=== PATIENT | female | born 1965 | race Caucasian/White ===

== ENCOUNTER 2020-05-14 07:30 | Outpatient (CLI) | payer OTHER, SELFPAY ==
--- NOTE | ~2020-05-14 | MM_ITS ---
EXAMINATION: MM screening ever BI w guanakito HISTORY: Screening mammogram TECHNIQUE: Craniocaudal and mediolateral oblique 3-D tomosynthesis images were obtained and synthetic 2-D images were generated. CAD analysis was submitted and interpreted. COMPARISON: 05/05/2019, 04/28/2018, 04/07/2017 bilateral digital screening mammogram examinations BREAST PARENCHYMAL COMPOSITION: The breasts are extremely dense, which lowers the sensitivity of mamm ography. FINDINGS: There is no evidence of suspicious mass, calcification, or architectural distortion to sugg est malignancy in either breast. There has been no suspicious interval change. IMPRESSION: 1. No mammographic evidence of malignancy. 2. Recommend routine screening mammography in one year. 3. Ultrasound may be of supplemental screening value in patients with dense breasts depending upon ph ysical examination and physician and patient preference. BI-RADS Category 1: Negative Reviewed, dictated and finalized at location A. IMPRESSION: 1. No mammographic evidence of malignancy. 2. Recommend routine screening mammography in one year. 3. Ultrasound may be of supplemental screening value in patients with dense anna asts depending upon physical examination and physician and patient preference. BI-RADS Category 1: Negative
== END 2020-05-14 07:31 | disposition home or self-care (01) ==
LOC: ANHIMG 07:31
PROVIDERS: PCP Family Medicine; Visit Provider Obstetrics & Gynecology
DX: Z12.31 Encounter for screening mammogram for malignant neoplasm of breast (principal)
CPT/HCPCS: 77063; 77067

== ENCOUNTER 2021-05-14 07:41 | Outpatient (CLI) | payer OTHER, SELFPAY ==
--- NOTE | ~2021-05-14 | MM_ITS ---
EXAMINATION: MM screening ever BI w guanakito HISTORY: Screening mammogram TECHNIQUE: Craniocaudal and mediolateral oblique 3-D tomosynthesis images were obtained and synthetic 2-D images were generated. CAD analysis was submitted and interpreted. COMPARISON: 05/14/2020, 05/05/2019, 04/28/2018 bilateral digital screening mammogram examinations BREAST PARENCHYMAL COMPOSITION: The breasts are extremely dense, which lowers the sensitivity of mamm ography. FINDINGS: There is no evidence of suspicious mass, calcification, or architectural distortion to sugg est malignancy in either breast. There has been no suspicious interval change. IMPRESSION: 1. No mammographic evidence of malignancy. 2. Recommend routine screening mammography in one year. BI-RADS Category 1: Negative Reviewed, dictated and finalized at location A.
== END 2021-05-14 07:42 | disposition home or self-care (01) ==
LOC: ANHIMG 07:43
PROVIDERS: PCP Internal Medicine; Visit Provider Obstetrics & Gynecology
DX: Z12.31 Encounter for screening mammogram for malignant neoplasm of breast (principal)
CPT/HCPCS: 77063; 77067

== ENCOUNTER 2022-01-10 00:19 | Day surgery (SDC) | payer OTHER, SELFPAY ==
[2021-12-30 16:01] VITALS: BMI 21.2
--- NOTE | 2022-01-09 12:29 | P.CONGI_ITS ---
Assessment and Plan Assessment and plan (1) Colon cancer screening: Code(s): Z12.11 - Encounter for screening for malignant neoplasm of colon Status: Acute Assessment and Plan: Colonoscopy with possible biopsy or polypectomy or cautery or injection of substances. (2) Hx of colonic polyps: Code(s): Z86.010 - Personal history of colonic polyps Status: Acute GI Consult Note Consult date/time: 01/09/22 12:29 HPI: Giovana Andre is a 56 year old female Who was referred because of the need for colon cancer screening. She did have 2 small polyps removed about 6 years ago. There is a family history of breast cancer but not colon cancer Review of Systems Review of Systems: All systems reviewed & are unremarkable except as noted in HPI and below PMFSH Past Medical History Medical History BMI 21.0-21.9, adult BMI 22.0-22.9, adult Encounter for long-term current use of medication Encounter for preventive health examination Encounter to establish care History of vaginal delivery x 3 Hx of colonic polyps Right foot pain Stress Vitamin D deficiency Surgical History Surgical History S/P medial meniscus repair of left knee 2018 [place] teeth removed Family History Family History Mother Family history of heart disease in male family member before age 55 Patient's mother is in good health, Onset Age: 70 Family history of malignant neoplasm of breast in first degree relative Grandparent Cerebrovascular accident Family history of malignant neoplasm of breast Social History Social History Smoking status: Never smoker Alcohol intake: current Drinks per week: 1 Alcohol use details: WINE/GLASS Substance use: never Substance use type: does not use Living arrangements: with family Spiritual care concerns: No Meds Home Medications and Allergies Home Medications Medication Instructions Recorded Confirmed Type cholecalciferol (vitamin D3) 25 25 mcg PO DAILY 04/09/20 01/10/22 History mcg (1,000 unit) capsule cyanocobalamin (vitamin B-12) 1,000 mcg PO DAILY 12/30/21 01/10/22 History [Vitamin B-12] Allergies Allergy/AdvReac Type Severity Reaction Status Date / Time No Known Allergies Allergy Verified 01/10/22 08:07 Exam Resp: Auscultation: clear to auscultation bilaterally Cardio: Rate: regular rate Rhythm: regular rhythm GI: GI Palp: Yes Soft to palpation and No Tenderness to palpation present (GI)
[2022-01-10 08:09] VITALS: BP 122/75; PULSE 59; RESP 16; TEMP 36.6; O2SAT 99; BMI 21.0
[2022-01-10] MEDS: LACTATED RINGERS 1,000 ML 150 ML IV CONT (08:11)
--- NOTE | 2022-01-10 08:35 | P.PNAN_ITS ---
Anes - Initial Pre Proc Eval Procedure: Operation Date: 01/10/22 09:00 Proposed Procedures p Screening Colonoscopy - Brenton Ness MD Date/Time: 01/10/22 08:35 Surgeon: Brenton Ness MD Pre Op Diagnosis: neoplasm screening, hx of colon polyps Patient Data Age: 56 Gender: F Height: 1.68 m Weight: 59.2 kg Last Vital Signs Temp 36.6 C 01/10/22 08:09 Pulse 59 L 01/10/22 08:09 Resp 16 01/10/22 08:09 BP 122/75 01/10/22 08:09 Pulse Ox 99 01/10/22 08:09 Allergies Allergy/AdvReac Type Severity Reaction Status Date / Time No Known Allergies Allergy Verified 01/10/22 08:07 Home Medications Medication Instructions Recorded Confirmed Type cholecalciferol (vitamin D3) 25 25 mcg PO DAILY 04/09/20 01/10/22 History mcg (1,000 unit) capsule cyanocobalamin (vitamin B-12) 1,000 mcg PO DAILY 12/30/21 01/10/22 History [Vitamin B-12] Patient hx anesthesia problems: none Family hx anesthesia problems: none Results Review: All pre-operative results and documents have been reviewed as part of the pre-operative evaluation. [facility] Past Medical History Medical History BMI 21.0-21.9, adult BMI 22.0-22.9, adult Encounter for long-term current use of medication Encounter for preventive health examination Encounter to establish care History of vaginal delivery x 3 Hx of colonic polyps Right foot pain Stress Vitamin D deficiency Surgical History Surgical History S/P medial meniscus repair of left knee 2018 [place] teeth removed Family History Family History Mother Family history of heart disease in male family member before age 55 Patient's mother is in good health, Onset Age: 70 Family history of malignant neoplasm of breast in first degree relative Grandparent Cerebrovascular accident Family history of malignant neoplasm of breast Social History Social History Smoking status: Never smoker Alcohol intake: current Drinks per week: 1 Alcohol use details: WINE/GLASS Substance use: never Substance use type: does not use Living arrangements: with family Spiritual care concerns: No Anes - Eval Final PreProcedure Day of Procedure 01/10/22 08:35 Patient weight: normal Heart: regular rate and rhythm Lungs: clear to auscultation Airway: Mallampati scale class II Neurological: alert and oriented Last oral intake: >/= 8 hours ASA classification: I Emergent: no Anesthetic plan: proceed Anesthesia type and monitoring: general GIVS and standard monitoring Results Review: All pre-operative results and documents have been reviewed as part of the pre-operative evaluation. Informed Consent: The patient's anesthetic plan and its attendant risks and benefits were discussed with the patient/family/POA. Questions were solicited and answers provided to the satisfaction of the patient/family/POA.
[2022-01-10 09:12] VITALS: BP 76/36; PULSE 52; RESP 16; O2SAT 100
[2022-01-10 09:22] VITALS: BP 95/54; PULSE 54; RESP 18; O2SAT 100
[2022-01-10 09:32] VITALS: BP 100/59; PULSE 50; RESP 18; O2SAT 100
== END 2022-01-10 09:35 | disposition home or self-care (01) ==
PROVIDERS: PCP Internal Medicine; Visit Provider Internal Medicine Gastroenterology
PROC: 0DJD8ZZ Inspection of Lower Intestinal Tract, Via Natural or Artificial Opening Endoscopic (ICD-10-PCS; CPT 45378; principal; 2022-01-10 09:00)
DX: Z12.11 Encounter for screening for malignant neoplasm of colon (principal); Z86.010 Personal history of colon polyps; E55.9 Vitamin D deficiency, unspecified
CPT/HCPCS: 45378; J2704; J7120

== ENCOUNTER 2022-06-16 07:05 | Outpatient (CLI) | payer OTHER, SELFPAY ==
--- NOTE | ~2022-06-16 | MM_ITS ---
EXAMINATION: MM screening [facility] BI w guanakito HISTORY: Screening mammogram TECHNIQUE: Craniocaudal and mediolateral oblique 3-D tomosynthesis images were obtained and synthetic 2-D images were generated. CAD analysis was submitted and interpreted. COMPARISON: 05/14/2021, 05/14/2020, 05/05/2019 BREAST PARENCHYMAL COMPOSITION: The breasts are heterogeneously dense, which may obscure small masses . FINDINGS: There is no suspicious mass, calcification, or architectural distortion to suggest malignan cy in either breast. There has been no suspicious interval change. IMPRESSION: 1. No mammographic evidence of malignancy. 2. Recommend routine screening mammography in one year. BI-RADS Category 1: Negative Reviewed, dictated and finalized at location A.
== END 2022-06-16 07:06 | disposition home or self-care (01) ==
LOC: ANHIMG 07:07
PROVIDERS: PCP Internal Medicine; Visit Provider Obstetrics & Gynecology
DX: Z12.31 Encounter for screening mammogram for malignant neoplasm of breast (principal)
CPT/HCPCS: 77063; 77067

== ENCOUNTER 2023-01-07 08:57 | Outpatient (CLI) | payer OTHER, SELFPAY ==
--- NOTE | ~2023-01-07 | XR_ITS ---
XR chest 2V DATE: 01/07/2023 09:22 INDICATION: Posterior chest pain TECHNIQUE: PA and lateral views COMPARISON: None FINDINGS: Normal heart size. No hilar or mediastinal enlargement. Mild bilateral hyperinflation. No pulmonary infiltrate or consolidation, pleural effusion or pulmonar y vascular congestion or pneumothorax is detected. IMPRESSION: Mild bilateral hyperinflation Reviewed, dictated and finalized at location B.
--- NOTE | ~2023-01-07 | XR_ITS ---
XR thoracic spine 3V DATE: 01/07/2023 09:22 INDICATION: Back pain, left scapular pain TECHNIQUE: AP, lateral, swimmer views COMPARISON: None FINDINGS: Minimal dextroscoliosis. No fracture or dislocation or bone destruction. The thoracic pedic les are intact. No paraspinal soft tissue thickening. There is minimal degenerative spurring of the thoracic spine. IMPRESSION: Minimal degenerative change Minimal dextro scoliosis Reviewed, dictated and finalized at location B.
== END 2023-01-07 08:58 | disposition home or self-care (01) ==
PROVIDERS: PCP Internal Medicine; Visit Provider Internal Medicine
DX: M54.9 Dorsalgia, unspecified (principal); R07.81 Pleurodynia; R91.8 Other nonspecific abnormal finding of lung field
CPT/HCPCS: 71046; 72072

== ENCOUNTER 2023-09-03 07:26 | Outpatient (CLI) | payer BC, SELFPAY ==
--- NOTE | ~2023-09-03 | MM_ITS ---
EXAMINATION: MM screening ever BI w guanakito HISTORY: Screening mammogram, family history of breast cancer in her mother. TECHNIQUE: Craniocaudal and mediolateral oblique 3-D tomosynthesis images were obtained and synthetic 2-D images were generated. CAD analysis was submitted and interpreted. COMPARISON: 06/16/2022, 05/14/2021, 06/14/2020 BREAST PARENCHYMAL COMPOSITION: The breasts are heterogeneously dense, which may obscure small masses . FINDINGS: No suspicious mass, calcification, or architectural distortion are identified in either anna ast to suggest malignancy. There has been no suspicious interval change. IMPRESSION: 1. No mammographic evidence of malignancy. 2. Recommend routine screening mammography in one year. BI-RADS Category 1: Negative Reviewed, dictated and finalized at location A. CTIVE SUPERVISOR
== END 2023-09-03 07:27 | disposition home or self-care (01) ==
PROVIDERS: PCP Internal Medicine; Visit Provider Obstetrics & Gynecology
DX: Z12.31 Encounter for screening mammogram for malignant neoplasm of breast (principal)
CPT/HCPCS: 77063; 77067

== ENCOUNTER 2024-06-22 10:26 | Outpatient (CLI) | payer BC, SELFPAY ==
[2024-06-22 10:58] LABS: Add Urine Microscopic? YES; Appearance Urine Clear (Clear); Bacteria Urine None Seen /hpf; Bilirubin Urine Negative (Negative); Blood Urine Negative (Negative); Color Urine Yellow (Yellow); Glucose Urine UA Negative (Negative); Ketones Urine Negative (Negative); Leukocyte Esterase Ur 2+ LEU/UL (Negative); Nitrate Urine Negative (Negative); Non Pathogenic Casts 0-2; Protein Urine Negative (Negative); RBC Urine 0-2 /hpf (0-2); Specific Grav Ur 1.004 (1.001-1.035); Squamous Epithelial Cell Urine None Seen /hpf (Few); Urobilinogen Urine 0.2 mg/dL (<2.0); pH Urine 7.5 (5.0-9.0)
== END 2024-06-22 10:27 | disposition home or self-care (01) ==
LOC: ANHLAB 10:29
PROVIDERS: PCP Internal Medicine; Visit Provider Internal Medicine
DX: R35.0 Frequency of micturition (principal)
CPT/HCPCS: 81001; 87077; 87086; 87088; 87186

== ENCOUNTER 2024-09-14 06:58 | Outpatient (CLI) | payer BC, SELFPAY ==
--- NOTE | ~2024-09-14 | XR_ITS ---
XR foot RT 2V Ordering provider: Rao Garcia MD History: . trauma x twisted ankle pain lateral . Comparison: None. FINDINGS: BONES: Fracture in the base of the fifth metatarsal bone. Minimal displacement in the bones is noted. Calcaneal spur. JOINT SPACES: Normal. No tarsal coalition. SOFT TISSUES: Normal. IMPRESSION: Fracture at the base of the fifth metatarsal bone. Reviewed, dictated and finalized at location A. EN MAKING TECHNICIAN
--- NOTE | ~2024-09-14 | XR_ITS ---
XR ankle RT 2V Ordering provider: Rao Garcia MD History: . trauma, twisted ankle pain lateral, bruising on . Comparison: None. FINDINGS: BONES: No acute fracture or dislocation. Calcaneal spur. Calcaneus spur JOINT SPACES: Normal. SOFT TISSUES: Normal. IMPRESSION: No acute osseous abnormality of the right ankle. Reviewed, dictated and finalized at location A. TRONIC SECURITY TECHNICIAN
== END 2024-09-14 06:59 | disposition home or self-care (01) ==
PROVIDERS: PCP Internal Medicine; Visit Provider Internal Medicine
DX: S92.354A Nondisplaced fracture of fifth metatarsal bone, right foot, initial encounter for closed fracture (principal); X50.1XXA Overexertion from prolonged static or awkward postures, initial encounter
CPT/HCPCS: 73600; 73620

== ENCOUNTER 2024-10-31 07:41 | Outpatient (CLI) | payer BC, SELFPAY ==
--- NOTE | ~2024-10-31 | MM_ITS ---
EXAMINATION: MM screening ever BI w guanakito HISTORY: Screening mammogram, family history of breast cancer in her mother. TECHNIQUE: Craniocaudal and mediolateral oblique 3-D tomosynthesis images were obtained and synthetic 2-D images were generated. CAD analysis was submitted and interpreted. COMPARISON: 09/03/2023, 06/16/2022, 05/14/2021 BREAST PARENCHYMAL COMPOSITION:Dense: The breasts are heterogeneously dense, which may obscure small masses. FINDINGS: No suspicious mass, calcification, or architectural distortion are identified in either anna ast to suggest malignancy. There has been no suspicious interval change. IMPRESSION: No mammographic evidence of malignancy. Recommend routine screening mammography in one year. BI-RADS Category 1: Negative Reviewed, dictated and finalized at location . S COUNTERPERSON
== END 2024-10-31 07:42 | disposition home or self-care (01) ==
LOC: ANHIMG 07:44
PROVIDERS: PCP Internal Medicine; Visit Provider Obstetrics & Gynecology
DX: Z12.31 Encounter for screening mammogram for malignant neoplasm of breast (principal)
CPT/HCPCS: 77063; 77067

== ENCOUNTER 2024-12-23 12:46 | Outpatient (CLI) | payer BC, SELFPAY ==
--- NOTE | ~2024-12-23 | DEXA_ITS ---
Bone Density Report Name: GERDA PERSAUD Age: 59 Sex: Female Ethnicity: White Date of : 1965 Indication: postmenopausal; screening for osteoporosis; Referring Provider: LUIS MIGUEL GALINDO Study: Bone densitometry was performed. Exam Date: December 23, 2024 Accession number: [id number] Bone Density: Region BMD T-score Z-score Classification AP Spine(L1-L4) 1.021 -0.2 1.3 Normal Femoral Neck (Left) 0.737 -1.0 0.3 Normal Total Hip (Left) 0.922 -0.2 0.9 Normal Femoral Neck (Right) 0.878 0.3 1.6 Normal Total Hip (Right) 0.939 0.0 1.0 Normal Total Hip Mean 0.930 -0.1 1.0 Normal World Health Organization criteria for BMD impression classify patients as: Normal (T-score at or above -1.0), Osteopenia (T-score between -1.0 and -2.5), or Osteoporosis (T-score at or below -2.5). 10-year Fracture Risk: FRAX not reported because: All T-scores for Spine Total, Hip Total, Femoral Neck at or above -1.0 Clinical Information Provided by Patient: Has used the following medications: Vitamin D, Calcium Patient maximum height was 66 Menopause Age: 54 Drinks caffeinated beverages Onset of menses at age 12 Number of children 3 Impression: The patient has normal bone mass. Discussion: BONE DENSITY IS ABOVE THE MINIMUM DESIRABLE LEVEL AT ALL SKELETAL SITES TESTED. This patient?s bone mineral density is above the minimum desirable level (T-score -1.0 or better) at all sites measured. The patient should follow a healthful lifestyle (good nutrition with adequate calcium and vitamin D, and appropriate weight-bearing exercise). Follow-Up: Consider repeating this study in 5 years or sooner if there is some new clinical indication. Reported by: LUIS on 12/23/2024 1:18:00 PM. Reviewed, dictated and finalized at location [facility] RODRIGUEZ
--- OUTSIDE RECORDS SUMMARY | 2024-12-23 13:07 | XMS_ITS | Clinical Summary ---
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 Gender Identity Not on file Sexual Orientation Not on file Plan of Treatment Health Maintenance Due Date Last Done Comments Hepatitis C Virus (HCV) Screening 1965 Mammogram 1963 TdaP Immunization 1963 Pap Smear 1984 Cervical Cancer Screening (CCS) 1993 HPV/Cotest 1993 Colonoscopy 2008 Colorectal Cancer Screening 2008 Cologuard 2013 Immunochemical Fecal Occult Blood 2013 Pneumococcal Immunization (5 0+ years) (1 of 1 - PCV) 2013 Zoster Immunization (1 of 2) 2013 Influenza Immunization (#1) 2024 SARS-COV-2 Immunization ( - 2023- season) 2024 09/27/2021, 11/30/2020, 11/01/2020 Respiratory Syncytial Virus (RSV) Immunization (Adult) (1 - 1-dose 75+ series) 2038 Hepatitis B Immunization Aged Out No longer eligible based on patient's age to complete this topic Meningococcal Immunization (ACWY) Aged Out No longer eligible b ased on patient's age to complete this topic Pneumococcal Immunization Combined Aged Out No longer eligible b ased on patient's age to complete this topic Rotavirus Immunization Aged Out No lo nger eligible based on patient's age to complete this topic
--- OUTSIDE RECORDS SUMMARY | 2024-12-23 13:07 | XMS_ITS | Clinical Summary ---
Author Organization [facility] [place] [facility] Address [address] [place] [address] Care Team Providers Care Seo Strategist Name Role Phone Art Gay MD Primary Care Provider [phone] Allergies No known active allergies Medications cyanocobalamin (Vitamin B-12) 250 mcg tablet Take 250 mcg by mouth daily. Active Active Problems Problem Noted Date Diagnosed Date Tear of medial meniscus of left knee, current Overview (06/28/2018): Added automatically from request for surgery [id number] Lentigo 09/15/2017 Palpitations 08/07/2015 Sinus bradycardia 08/07/2015 Eczema 03/23/2013 Keratosis, senilis 03/23/2013 Surgical History Surgery Date Site/Laterality Comments COLONOSCOPY KNEE ARTHROSCOPY Family History Medical History Relation Name Comments Coronary artery disease Father Fami ly history of coronary artery disease - (Added by TW Conv) Hypertension Father Family history of hypertension - (Added by TW Conv) Heart attack Mother Family history of heart attack - (Added by TW Conv) Cancer Neg Hx Relation Name Status Comments Father Mother Social History Tobacco Use Types Packs/Day Years Used Date Smoking Tobacco: Never Smokeless Tobacco: Never Alcohol Use Standard Drinks/Week Comments Yes 0 (1 standard drink = 0.6 oz pur e alcohol) social Comments Unknown Sex and Gender Information Value Date Recorded Sex Assigned at Not on file Legal Sex Female 3:49 AM BRAND LEADER Gender Identity Not on file Sexual Orientation Not on file Obstetrics History Last Filed Vital Signs Vital Sign Reading Time Taken Comments Blood Pressure 121/85 09/07/2018 2:32 PM BRAND LEADER Pulse 58 09/07/2018 2:32 PM BRAND LEADER Temperature 36.6 C (97.8 F) 07/21/2018 1:41 PM CDT Respiratory Rate 18 07/21/2018 1:41 PM CDT Oxygen Saturation 100% 07/21/2018 1:41 PM CDT Inhaled Oxygen Concentration - - Weight 60.3 kg (133 lb) 09/07/2018 2:32 PM BRAND LEADER Height 167.6 cm (5' 6 ) 09/07/2018 2:32 PM BRAND LEADER Body Mass Index 21.47 09/07/2018 2:32 PM BRAND LEADER Plan of Treatment Not on file Insurance OPEN ACCESS CHOICE PLUS Care Teams Seo Strategist Relationship Specialty Start Date End Date Art Gay MD [address] [place] [address] PCP - General 07/21/17
--- OUTSIDE RECORDS SUMMARY | 2024-12-23 13:07 | XMS_ITS | Referral Summary ---
Author Organization [facility] [place] [facility] Address [address] [place] [address] Care Team Providers Care Steel Post Installer Name Role Phone Art Gay MD Primary Care Provider [phone] Allergies No known active allergies Medications cyanocobalamin (Vitamin B-12) 250 mcg tablet Take 250 mcg by mouth daily. Active Active Problems Problem Noted Date Diagnosed Date Tear of medial meniscus of left knee, current Overview (06/28/2018): Added automatically from request for surgery [id number] Lentigo 09/15/2017 Palpitations 08/07/2015 Sinus bradycardia 08/07/2015 Eczema 03/23/2013 Keratosis, senilis 03/23/2013 Social History Tobacco Use Types Packs/Day Years Used Date Smoking Tobacco: Never Smokeless Tobacco: Never Alcohol Use Standard Drinks/Week Comments Yes 0 (1 standard drink = 0.6 oz pur e alcohol) social Comments Unknown Sex and Gender Information Value Date Recorded Sex Assigned at Not on file Legal Sex Female 3:49 AM INDUSTRIAL GARAGE SERVICER Gender Identity Not on file Sexual Orientation Not on file Last Filed Vital Signs Vital Sign Reading Time Taken Comments Blood Pressure 121/85 09/07/2018 2:32 PM INDUSTRIAL GARAGE SERVICER Pulse 58 09/07/2018 2:32 PM INDUSTRIAL GARAGE SERVICER Temperature 36.6 C (97.8 F) 07/21/2018 1:41 PM CDT Respiratory Rate 18 07/21/2018 1:41 PM CDT Oxygen Saturation 100% 07/21/2018 1:41 PM CDT Inhaled Oxygen Concentration - - Weight 60.3 kg (133 lb) 09/07/2018 2:32 PM INDUSTRIAL GARAGE SERVICER Height 167.6 cm (5' 6 ) 09/07/2018 2:32 PM INDUSTRIAL GARAGE SERVICER Body Mass Index 21.47 09/07/2018 2:32 PM INDUSTRIAL GARAGE SERVICER Plan of Treatment Not on file Insurance [facility] [address] CHOICE PLUS [facility] H[facility]/PPO Address: [address] [address] [place] [address] Care Teams Steel Post Installer Relationship Specialty Start Date End Date Art Gay MD [address] [place] [address] PCP - General 07/21/17
--- OUTSIDE RECORDS SUMMARY | 2024-12-23 13:07 | XMS_ITS | Clinical Summary ---
Author Organization [facility] Address [address] [place] [address] Care Team Providers Care Appian Bpm Developer Name Role Phone Rubin Servin MD Primary Care Provider [phone] Source Comments [facility],non-owned Affiliates and Associated Physician Practices is amultiple site organization consisting of ambulatory clinics and hospital sitesin [place], [place], [place] and [place]. This disclosure is being madepursuant to the Care Everywhere program and may not contain all information available regarding this patient. Last updated 18.[facility] Allergies No known active allergies Immunizations Name Administration Dates Next Due HEP A VACCINE, ADULT 02/20/2017 Social History Tobacco Use Types Packs/Day Years Used Date Smoking Tobacco: Never Assessed Sex and Gender Information Value Date Recorded Sex Assigned at Not on file Gender Identity Not on file Sexual Orientation Not on file Plan of Treatment Health Maintenance Due Date Last Done Comments COLOGUARD (AGES 45-75) - COL ON CA SCREENING 1963 COLON MONITORING 1963 COLONOSCOPY - COLON CA SCREENING 1963 CT COLONOGRAPHY - COLON CA SCREENING 1963 Colorectal Cancer Screening 1963 FIT - COLON CA SCREENING 1963 FLEX SIG - COLON CA SCREENING 1963 LIPID TESTING 1963 MAMMOGRAM 1963 PAP SMEAR 1963 HIV SCREENING 1978 HEPATITIS C SCREENING 06/13/1981 DTAP/TDAP/TD VACCINES (1 - Tdap) 1982 PNEUMOCOCCAL VACCINE 50+ (1 of 1 - PCV) 2013 ZOSTER VACCINE (1 of 2) 2013 HEPATITIS A VACCINE (2 of 2 - Risk 2-dose series) 08/23/2017 02/20/2017 COVID-19 VACCINE ( - 2023-2 5 season) 2024 INFLUENZA VACCINE (#1) 2024 DEPRESSION SCREENING 10/19/2024 Respiratory Syncytial Virus (RSV) Vaccine Pt: or over 60 yrs (1 - 1-dose 75+ series) 2038 HEPATITIS B VACCINE Aged Out No longe r eligible based on patient's age to complete this topic HIB VACCINE Aged Out No longer eligi ble based on patient's age to complete this topic HPV VACCINE Aged Out No longer eligi ble based on patient's age to complete this topic MENINGOCOCCAL (Group B) VACCINE Aged Out No longer eligible based on patient's age to complete this topic MENINGOCOCCAL VACCINE Aged Out No simona susana eligible based on patient's age to complete this topic PNEUMOCOCCAL VACCINE Aged Out No long er eligible based on patient's age to complete this topic Care Teams Appian Bpm Developer Relationship Specialty Start Date End Date Rubin Servin MD [address] [place] [address] PCP - General Family Medicine 02/20/17
--- OUTSIDE RECORDS SUMMARY | 2024-12-23 13:07 | XMS_ITS | Data Portability ---
Author Organization [facility], Main Office Address [address] [place] [address] Care Team Providers Care Signal Person Name Role Phone SUJIT SCHULTZ Primary Care Provider SUJIT SCHULTZ Referring Provider [phone] Assessment Encounter Date Assessment Date Assessment LastModified by Organization Details LastModified Time 09/21/2024 09/21/2024 59-year-old female presents for evaluation of her right foot. She has referral from Bolivar John from [facility]. She is very active and regularly does triathlons. She was doing a 5 mi run on 09/08/2024 when she stepped on a branch and twisted her ankle, inverting it. She felt a pop and had significant pain. Since then she has been in a boot and weight-bearing on it. She is not taking any pain medications. She currently rates her pain as 3/10. She has a hiking trip at the end of September to [place]. She is a retired nurse at [employer]. Review of systems per patient questionnaire Physical exam: Boot was removed. She has tenderness over the base of the 5th metatarsal. No tenderness elsewhere. She has good ankle range of motion without pain. She has no pain with weight-bearing. Sensation intact to light touch throughout, 2+ DP pulse. X-rays reviewed, demonstrating a minimally displaced pseudo Deal fracture For her pseudo Deal fracture we will treat this conservatively. She may be weight-bearing as tolerated in a boot. We discussed that bones usually take 4-6 weeks to heal. She should take anti-inflammator ies as needed and continue to ice and elevate for swelling. She is already taking vitamin-D and calcium. We will send her to physical therapy to work on ultrasound or stim modalities to try to help expedite her healing. We can see her back before she leaves on her trip for evaluation. If she has minimal pain in his walking better at that point, we can transition her to a lace-up ankle brace and have her wear a high top supportive boot on her hiking trip. Otherwise we will maintain the boot. She is in agreement with the plan. Not available 09/21/2024 16:22:45 10/03/2024 10/03/2024 59-year-old female presents for follow-up of her right pseudo Deal fracture. This happened about 3 weeks ago. She has been weight-bearing as tolerated in the boot. She has made some progress, still having some soreness. She still has tenderness over the base of 5th metatarsal. She has good ankle motion including eversion without pain. Sensation intact to light touch, 2+ DP pulse X-rays reviewed, demonstrating the pseudo Deal fracture with maintenance of alignment We will continue with weight-bearing as tolerated in the boot. She is going to trip and was hoping to come out of the boot for that, but it would be safest to remain in the boot. She should continue doing physical therapy with modalities. We can see her back after the trip to see how she is doing in a few weeks. She is in agreement with the plan. Not available 10/03/2024 11:32:04 10/26/2024 10/26/2024 59-year-old female presents for follow-up her right pseudo Deal fracture. She reports feeling better, having no pain. She has weaned herself out of the boot and is wearing regular sneakers. She recently returned from a trip and did fine with that. She is 8 or greater taking return to activities. She is wearing regular shoes. Nonantalgic gait. She has no tenderness over the base of the 5th metatarsal. Full ankle range of motion. No pain with resisted motion including eversion. X-rays reviewed, demonstrating maintenance of alignment, gap still visible but appears to be starting to fill in At this point, she has no pain and is doing well. She may progress with activities as tolerated. I advised her to avoid activities where she may re-injure the ankle. Activities such as biking or swimming would be safer than running where she could potentially twist her ankle. She may follow-up as needed, call with any questions concerns. Not available 10/26/2024 10:25:45 Plan of Treatment Reminders Order Date Submit Date Provider Last Modified By Organization Details Last Modified Time Details Appointments None recorded. Lab None recorded. Referral physical therapist referral - Please contact pt to schedule for R foot. Thanks 2023 024 NICOLE[facility]E [facility], [address], [address], [place], [address], 4 12:22:56 Procedures None recorded. Surgeries None recorded. Imaging XR, foot 2024 025 [email or web address] [facility] [place], [address], [place], [address], 5 11:58:10 XR, foot, 3 or more view 2023 024 [email or web address] [facility] [place], [address], [place], [address], 4 16:35:22 Medication Orders None recorded. Patient TargetsNo targets recorded. Patient InstructionsNo instructions recorded. Reason for Referral Physical Therapist Referral for Pain in right foot 5th metatarsal Fx Please contact pt to schedule for R foot. Thanks Referring Physician: Oren Robledo, Orthopedic Surgery, Encounter Date: 09/21/2024 Results Created Date Observation Date Name Description Value Unit Range Abnormal Flag Note LastModifiedBy Organization Detail LastModifiedTime 09/21/20 24 XR, foot, 3 or more view No observ ation record ed. [email or web address] [facility] [place] [address], [place], [address], 09/21/2024 15:43:23 10/26/19 25 XR, foot No observ ation record ed. [email or web address] [facility] [place] [address], [place], [address], 10/26/2024 10:05:37 Result Notes None recorded. Problems Name Problem SNOMED Code Status Onset Date Resolution Date Notes Provider Name and Address Organization Details Recorded Time Amenorrhea 44327484 Active Not Available [facility] 3 07:43:37 Mammograph y abnormal 978199148 Active Not Available [facility] 3 07:43:37 Irregular periods 04584509 Active Not Available [facility] 3 07:43:37 Pain in right foot 7749070254079 07 Active 2023 RODRIGUEZ Carrion null, [facility] 4 15:43:34 Closed fracture of base of fifth metatarsal bone 926311521 Active 2023 Oren Robledo MD [address] [place] [address], [address] , [facility] 16:23:11 Problem Notes None recorded. Procedures Surgical History Date Name Laterality Status Provider Name and Address Organization Details Recorded Time Knee Surgery completed RODRIGUEZ Carrion [facility] 09/21/2024 15:42:38 Imaging Results Imaging Date Name Status LastModified by Organiz ation Details LastModified Time 09/21/2024 XR, foot, 3 or more view completed [email or web address] [facility] [place] [address], [place], [address], 09/21/2024 15:43:23 10/26/2024 XR, foot completed [email or web address] [facility] [place] [address], [place], [address], 10/26/2024 10:05:37 Procedure Notes None recorded. Medical Equipment None Reported. Medications Name Sig Start Date Stop Date Status Note LastModified by Organization Details LastModified Time prednisone 10 mg tablet active Not Available Not Available Not Available ciprofloxac in 500 mg tablet 09/19 completed Not Available Not Available Not Available epinephrine 0.3 mg/0.3 mL injection, auto-inject or active Not Available Not Available Not Available cefuroxime axetil 500 mg tablet active Not Available Not Available No t Available medroxyprog esterone 150 mg/mL intramuscul ar syringe INJECT 1 MILLILITE R (150 MG) BY INTRAMUSC ULAR ROUTE EVERY 3 MONTHS active Not Available Not Available No t Available nitrofurant oin monohydrate /macrocryst als 100 mg capsule TAKE 1 CAPSULE BY MOUTH EVERY 12 HOURS FOR 7 DAYS 09/21 completed Not Available Not Available Not Available Vitals Date Recorded Body height Body mass index (BMI) Body weight Pain severity - 0-10 verbal numeric rating [Score] - Reported Provider Name and Address Organization Details Last Updated DateTime 09/21/2024 167.64 cm 21.8 kg/m2 97689.97 g 3 RODRIGUEZ Carrion [facility] 09/21/2024 15:40:54 Date Recorded Body height Body mass index (BMI) Body weight Pain severity - 0-10 verbal numeric rating [Score] - Reported Provider Name and Address Organization Details Last Updated DateTime 10/03/2024 167.64 cm 21.8 kg/m2 93886.97 g 2 RODRIGUEZ Carrion [facility] [employer] [facility] 10/03/2024 10:46:21 Date Recorded Body height Body mass index (BMI) Body weight Provider Name and Address Organization Details Last Updated DateTime 10/26/2024 167.64 cm 21.8 kg/m2 24061.97 g Rosmery Linares [facility] [employer] [facility] 10/26/2024 10:05:05 Social History Question Answer Notes LastModified by Organizat ion Details LastModified Time Tobacco Smoking Status Former Sm[facility] [employer] 09/21/2024 15:42:02 What Is Your Level Of Alcohol Consumption? Occasional [email or web address] Information not available 09/21/2024 What Was The Date Of Your Most Recent Tobacco Screening? 09/21/2024 [email or web address] Information not available 09/21/2024 Sex: Unknown Functional Status None recorded. Mental Status None recorded. Family History Relationship Description Onset Age of this Age Resolved Age Notes LastModified by Organization Details LastModified Time Father Heart disease [email or web address] Not available 2023 15:41:30 Father Hypertensive disorder [email or web address] Not available 2023 15:41:39 Father Family history of stroke Not available 10/26 09:54:57 Medical History No medical history recorded. Gynecological HistoryNo gynecological history recorded. Obstetrics History GPAL:G 0 P 0 0 0 0 Past Encounters Encounter ID Performer Location Encounter Start Date Encounter Closed Date Diagnosis/Indication Diagnosis SNOMED-CT Code Diagnosis ICD10 Code Diagnosis Note [id number] Oren Robledo MD [facility] [place] [address] [place] [address] 09/21/2024 15:26:56 09/21/2024 16:12:58 Pain in right foot 5222096391 23269 M79.671 Closed fra cture of base of fifth metatarsal bone 403286956 S92.351A [id number] Oren Robledo MD [facility] [address] [address] 10/03/2024 10:44:32 10/03/2024 10:59:30 Closed fracture of base of fifth metatarsal bone 733433986 S92.351A Pain in right foot 50971 54983 70110 M79.207 [id number] Oren Robledo MD [facility] [place] [address] [place] [address] 10/26/2024 09:53:14 10/26/2024 10:24:29 Pain in right foot 6067465239 95904 M79.671 Closed fra cture of base of fifth metatarsal bone 505530096 S92.351D Health Concerns Section Related Observation LastModified by Organization Detai ls LastModified Time None Recorded Concern Status LastModified by Organization Details LastModified Time None Recorded Advance Directives Directive None Recorded Payers Encounter Date Sequence Insurance Name Policy Number Policy Monteiro Covered Member ID Monteiro Member ID Guarantor Name 09/21/2024 1 [place] [id number] Giovana K Jes [id number] Giovana K Jes 10/03/2024 1 [place] [id number] Giovana K Jes [id number] Giovana K Jes 10/26/2024 1 [facility] [id number] Giovana Martin Jes [id number] Giovana Martin Jes OBGyn Episode No OBEpisode recorded.
--- OUTSIDE RECORDS SUMMARY | 2024-12-23 13:07 | XMS_ITS | Patient Health Summary ---
Author Organization [facility] [employer] Address [address] [place] [address] Care Team Providers Care Counter Intelligence Name Role Phone Rubin Servin MD Primary Care Provider [phone] Note from [facility],non-owned Affiliates and Associated Physician Practices is amultiple site organization consisting of ambulatory clinics and hospital sitesin [place], [place], [place] and [place]. This disclosure is being madepursuant to the Care Everywhere program and may not contain all information available regarding this patient. Last updated 18.[facility] [employer] Allergies No known active allergies Immunizations * HEP A VACCINE, ADULT(Given 02/20/2017) Social History Tobacco Use Types Packs/Day Years Used Date Smoking Tobacco: Never Assessed Sex and Gender Information Value Date Recorded Sex Assigned at Not on file Gender Identity Not on file Sexual Orientation Not on file Procedures * SKIN TEST PPD - POINT OF CARE(Performed 02/20/2017) Performed for PPD screening test Results * SKIN TEST PPD - POINT OF CARE (02/20/2017) PPD neg MISCELLANEOUS SAMPLE S / Unknown 02/20/2017 Russel Lopes RN [facility] - POINT OF CARE ORDERABLES Care Teams Counter Intelligence Relationship Specialty Start Date End Date Rubin Servin MD [address] [place] [address] PCP - General Family Medicine 02/20/17
--- OUTSIDE RECORDS SUMMARY | 2024-12-23 13:07 | XMS_ITS | Referral Summary ---
Author Organization [facility] [employer] Address [address] [place] [address] Care Team Providers Care Quality Improvement Analyst Name Role Phone Rubin Servin MD Primary Care Provider [phone] Source Comments [facility] [employer],non-owned Affiliates and Associated Physician Practices is amultiple site organization consisting of ambulatory clinics and hospital sitesin [place], [place], [place] and [place]. This disclosure is being madepursuant to the Care Everywhere program and may not contain all information available regarding this patient. Last updated 18.[facility] [employer] Allergies No known active allergies Immunizations Name Administration Dates Next Due HEP A VACCINE, ADULT 02/20/2017 Social History Tobacco Use Types Packs/Day Years Used Date Smoking Tobacco: Never Assessed Sex and Gender Information Value Date Recorded Sex Assigned at Not on file Gender Identity Not on file Sexual Orientation Not on file Plan of Treatment Not on file Administered Medications Care Teams Quality Improvement Analyst Relationship Specialty Start Date End Date Rubin Servin MD [address] [place] [address] PCP - General Family Medicine 02/20/17
== END 2024-12-23 12:47 | disposition home or self-care (01) ==
LOC: ANHIMG 12:48
PROVIDERS: PCP Internal Medicine; Visit Provider Obstetrics & Gynecology
DX: Z78.0 Asymptomatic menopausal state (principal)
CPT/HCPCS: 77080